=== PATIENT | male | born 1945 | race Native Hawaiian/Other Pacific Islander ===

== ENCOUNTER → 2024-03-21 11:55 | Outpatient (CLI) | payer MEDICARE, SELFPAY ==
--- NOTE | 2024-03-21 11:59 | DI.MRI.S_ITS ---
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 COMPARISON: None. FINDINGS: Image quality: Excellent. Anterior circulation: There is a 2 mm outpouching from the left A1 segment the anterior cerebral artery near the internal carotid confluence. Remaining portions the anterior cerebral artery as well as posterior and middle cerebral arteries bilaterally demonstrate no areas of hemodynamically significant stenosis, vascular occlusion or aneurysmal dilation. Posterior circulation: Visualized portions of the vertebral arteries demonstrate normal caliber, and join to form a normal appearing basilar artery. The flow within the posterior cerebral arteries is normal and symmetric. No stenoses, occlusions, or aneurysms. IMPRESSION: 2 mm outpouching from the left A1 segment of the anterior cerebral artery suggestive of small aneurysm. CTA is recommended for confirmation. Dictated by: Tiffany Richards M.D. on 03/23/2024 at 15:53 Approved by: Tiffany Richards M.D. on 03/23/2024 at 16:06
== END ==
LOC: MRI 11:58
PROVIDERS: PCP Internal Medicine; Referring Provider Internal Medicine; Visit Provider Internal Medicine
DX: H49.01 Third [oculomotor] nerve palsy, right eye (principal)
CPT/HCPCS: 70546; A9579

== ENCOUNTER → 2024-04-09 11:43 | Outpatient (CLI) | payer MEDICARE, SELFPAY ==
--- NOTE | 2024-04-09 11:44 | DI.US.S_ITS ---
PROCEDURE: US ARTERIAL DUPLEX LE LT INDICATIONS: ANEURYSM LT ILIAC ARTERY,RT OCULOMOTOR NERVE PALSY TECHNIQUE: Color and pulse Doppler interrogation was performed of the left lower extremity arterial system, with image documentation. COMPARISON: None. 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 The saccular aneurysm is widely patent without evidence of thrombus. The arterial spectral Doppler waveform appears normal with brisk upstroke, with peak systolic velocity of 217 centimeters/second. Common femoral artery: 125 cm/sec, with patent biphasic flow. Deep femoral artery: 50 cm/sec, with patent biphasic flow. Proximal superficial femoral artery: 81.8 cm/sec, with patent biphasic flow. Mid superficial femoral artery: 98.9 cm/sec, with patent biphasic flow. Distal superficial femoral artery: 66.6 cm/sec, with patent biphasic flow. Popliteal artery: 61.3 cm/sec, with patent biphasic flow. Posterior tibial artery: 73.2 cm/sec, with patent biphasic flow. Anterior tibial artery/dorsalis pedis: 25.9 cm/sec, with patent biphasic with decreased amplitude flow. Pérez-scale imaging description: No significant calcified or noncalcified atheromatous disease is seen. IMPRESSION: 1. 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 Consider interventional radiology consultation for excluding the saccular aneurysm by way of stenting. 2. Approximately 1-19% stenosis are suggested by the increased peak systolic velocity at the common femoral artery. Dictated by: Noah Alonso M.D. on 04/09/2024 at 15:15 Approved by: Noah Alonso M.D. on 04/09/2024 at 15:25
--- NOTE | 2024-04-09 11:45 | DI.CT.S_ITS ---
PROCEDURE: CT ANGIO HEAD AND NECK INDICATIONS: ANEURYSM LT ILIAC ARTERY,RT OCULOMOTOR NERVE PALSY TECHNIQUE: After the administration of intravenous contrast, 1 mm thick sections acquired from the aortic arch through the [place]. 3-dimensional euckuaq-agpgysqqn-ccqjiueoxq (MIP) and/or volume rendering reformats were acquired of the central intracranial vasculature and neck separately. For radiation dose reduction, the following was used: automated exposure control, adjustment of mA and/or kV according to patient size. COMPARISON: [facility], MR, MR ANGIO HEAD WO/W CON, 03/21/2024, 12:30. FINDINGS: Image quality: Limited by bolus timing, with venous contamination. There is streak artifact seen through the level of the shoulders. BRAIN: CSF spaces: Ventricles are normal in size and shape. Basal cisterns are patent. No extra-axial fluid collections. Brain: No significant abnormality of the brain can be seen. Skull and face: Calvarium and facial bones appear intact, without suspicious lesions. Orbits appear normal. Sinuses: Sinuses and mastoids are clear. HEAD CT ANGIOGRAPHY: Anterior circulation: In this patient with this given history, scrutiny is given to the area of the prior MR angiogram abnormality. No definite aneurysms are seen at this site. No aneurysms are seen elsewhere. Intracranial internal carotid arteries are normal in size and flow. The flow within the paired anterior cerebral arteries is normal and symmetric. The flow within the middle cerebral arteries is normal and symmetric. The anterior communicating artery is seen. Posterior circulation: Visualized portions of the vertebral arteries demonstrate normal caliber, and join to form a normal appearing basilar artery. There is a prominent right posterior communicating artery seen, with an accompanying diminutive right P1 segment. This is attributed to a type origin of the right posterior cerebral artery, which is considered to be a normal developmental variant of typically no clinical consequence. The flow within the posterior cerebral arteries is normal and symmetric. No aneurysms are seen. NECK CT ANGIOGRAPHY: Carotid system: The great vessels demonstrate a conventional anatomy as they arise from the aortic arch. The origins of the common carotid arteries appear patent. The common carotid arteries demonstrate normal caliber and courses. The bifurcation regions are both widely patent. The internal carotid arteries demonstrate normal calibers and courses. Posterior circulation: The origins of the vertebral arteries both appear widely patent. The more superior extracranial portions of both vertebral arteries also demonstrate normal courses and calibers. They join to form a normal appearing basilar artery. Soft tissues: Visualized neck soft tissues demonstrate no suspicious abnormalities. Bones: No suspicious bony lesions. Visualized cervical spine appears normally aligned. Ejgc-le-wwcyvrqc cervical spine degenerative change can be seen. IMPRESSION: No definite intracranial aneurysm is confirmed at the left A1 segment on this follow-up study. No significant intracranial arterial abnormality can be seen elsewhere. No significant abnormality is seen within the arteries of the neck. Any quantitative measurements of stenosis were performed using NASCET criteria. Dictated by: Ruslan Wong M.D. on 04/09/2024 at 12:29 Approved by: Ruslan Wong M.D. on 04/09/2024 at 12:35
[2024-04-09 12:45] LABS: Estimated Glomerular Filt Rate > 60 mL/min (>60)
== END ==
PROVIDERS: Radiology Diagnostic Radiology; PCP Internal Medicine; Referring Provider Internal Medicine; Visit Provider Internal Medicine
DX: I67.1 Cerebral aneurysm, nonruptured (principal); H49.01 Third [oculomotor] nerve palsy, right eye; I72.3 Aneurysm of iliac artery
CPT/HCPCS: 36415; 70496; 70498; 82565; 93926; Q9967